=== PATIENT | female | born 2000 | race Caucasian/White ===

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

== ENCOUNTER 2020-02-11 09:45 | Emergency (ER) | payer MEDICAID ==
[~2020-02-11] VITALS: Ht 149.9 cm; Wt 38.6 kg
[2020-02-11 09:53] VITALS: Ht 149.9 cm; Wt 38.6 kg
[2020-02-11 12:13] LABS: BASOPHIL % 0.2 % (0-2); PLATELET COUNT 154 x10^3mcL (130-400)
[2020-02-11 12:27] VITALS: BP 113/84
[2020-02-11 12:43] LABS: CALCIUM 8.8 mg/dL (8.5-10.1); CARBON DIOXIDE 28.3 mmol/L (21-32); CHLORIDE SERUM 102 mmol/L (98-107); CREATININE SERUM 0.7 mg/dL (0.6-1.0); GFR1 > 60 mL/min; GLUCOSE SERUM 83 mg/dL (74-106); POTASSIUM SERUM 3.6 mmol/L (3.5-5.1); SODIUM SERUM 139 mmol/L (136-145)
[2020-02-11 12:47] LABS: ALBUMIN 3.4 g/dL (3.4-5.0); ALKALINE PHOSPHATASE 56 U/L (46-116); ALT/SGPT 21 U/L (14-59); AST/SGOT 17 U/L (15-37); BILIRUBIN TOTAL 0.42 mg/dL (0.20-1.00); TOTAL PROTEIN, SERUM 7.6 g/dL (6.4-8.2)
== END 2020-02-11 13:01 | disposition home or self-care (01) ==
LOC: ED 09:45
PROVIDERS: Student in an Organized Health Care Education/Training Program
DX: B00.2 Herpesviral gingivostomatitis and pharyngotonsillitis (principal)

== ENCOUNTER 2020-05-30 12:52 | Emergency (ER) | payer MEDICAID ==
[~2020-05-30] VITALS: Ht 152.4 cm; Wt 42.2 kg
[2020-05-30 13:01] VITALS: Ht 152.4 cm; Wt 42.2 kg
[2020-05-30 13:42] LABS: microscopic required? NO
[2020-05-30 13:48] LABS: UA SPECIFIC GRAVITY >=1.030 (1.005-1.035); urine erythrocyte NEGATIVE (NEGATIVE)
[2020-05-30 14:10] LABS: BASOPHIL % 0.8 % (0.2-1.3); PLATELET COUNT 139 x10^3mcL (179-408); RED CELL DISTRIBUTION WIDTH 12.5 % (12.3-17.7)
[2020-05-30 14:39] LABS: CARBON DIOXIDE 26.4 mmol/L (21-32); CHLORIDE SERUM 101 mmol/L (98-107); CREATININE SERUM 0.6 mg/dL (0.6-1.0); GFR1 > 60 mL/min; GLUCOSE SERUM 80 mg/dL (74-106); POTASSIUM SERUM 3.9 mmol/L (3.5-5.1); SODIUM SERUM 136 mmol/L (136-145)
[2020-05-30 14:43] LABS: ALBUMIN 3.9 g/dL (3.4-5.0); ALKALINE PHOSPHATASE 76 U/L (46-116); ALT/SGPT 18 U/L (14-59); AST/SGOT 16 U/L (15-37); BILIRUBIN TOTAL 0.3 mg/dL (0.20-1.00); LIPASE 108 IU/L (73-393); TOTAL PROTEIN, SERUM 7.1 g/dL (6.4-8.2)
[2020-05-30] MEDS ORDERED: DICYCLOMINE HYD10 M1 PO (16:51)
[2020-05-30] MEDS ORDERED: SUNMARK PAIN R325 MG PO (16:51)
[2020-05-30 17:00] VITALS: BP 110/70
== END 2020-05-30 17:26 | disposition home or self-care (01) ==
LOC: ED 12:52
PROVIDERS: Emergency Medicine
DX: R10.32 Left lower quadrant pain (principal); R10.13 Epigastric pain